=== PATIENT | female | born 1960 | race Caucasian/White ===

== ENCOUNTER 2018-11-05 09:42 | Emergency (ER) | payer BC ==
[2018-11-05 09:53] VITALS: BP 110/72
--- NOTE | 2018-11-05 10:06 | UC ---
UC General HPI - HPI Summary HPI Summary: pt noted some pain in her L upper abdomen and L back Wednesday. Wednesday, she noted a rash on her abdomen which is increasing since this am. she self tx with Naproxen [employer] which helped. no hx injury. no N/V/D or dysuria. + hx chicken pox as child. pt feels like the pain her her back is her kidney. she notes a similar discomfort 5 years ago but no rash. - History of Current Complaint Chief Complaint: UCAbdominalPain Stated Complaint: LT SIDE PAIN Time Seen by Provider: 11/05/18 09:57 Hx Obtained From: Patient Hx Last Menstrual Period: 01/2012 Onset/Duration: Gradual Onset Timing: Constant Pain Intensity: 5 - Allergy/Home Medications Allergies/Adverse Reactions: Allergies Allergy/AdvReac Type Severity Reaction Status Date / Time MS Penicillins [Penicillins] Allergy Intermediate Rash And Verified 11/05/18 09: 54 Itching MS Aromatic Oils Allergy Itch and Verified 11/05/18 09:54 [From Mentholatum Deep skin Heating Rub] breaks out MS Lanolin Allergy Itch and Verified 11/05/18 09:54 [From Mentholatum Deep skin Heating Rub] breaks out MS Menthol Allergy Itch and Verified 11/05/18 09:54 [From Mentholatum Deep skin Heating Rub] breaks out MS Methyl Salicylate Allergy Itch and Verified 11/05/18 09:54 [From Mentholatum Deep skin Heating Rub] breaks out PMH/Surg Hx/FS Hx/Imm Hx Previously Healthy: Yes - Surgical History Surgical History: Yes Surgery Procedure, Year, and Place: L ear - Family History Known Family History: Positive: Non-Contributory Negative: Diabetes - Social History Alcohol Use: Rare Substance Use Type: None Smoking Status (MU): Never Smoked Tobacco Review of Systems All Other Systems Reviewed And Are Negative: Yes Constitutional: Negative: Fever, Chills Skin: Positive: Rash - L side Respiratory: Negative: Shortness Of Breath, Cough Cardiovascular: Negative: Palpitations, Chest Pain Gastrointestinal: Negative: Vomiting, Diarrhea, Nausea Genitourinary: Negative: Dysuria, Hematuria, Frequency, Urgency Physical Exam Triage Information Reviewed: Yes Appearance: Well-Appearing Vital Signs: Initial Vital Signs Temp 97.2 F 11/05/18 09:50 Pulse 67 11/05/18 09:50 Resp 16 11/05/18 09:50 BP 110/72 11/05/18 09:50 Pulse Ox 100 11/05/18 09:50 Vital Signs Reviewed: Yes Eyes: Positive: Conjunctiva Clear ENT: Positive: Normal ENT inspection Neck: Positive: Supple Respiratory: Positive: Lungs clear, Normal breath sounds, No respiratory distress Cardiovascular: Positive: RRR, No Murmur Abdomen Description: Positive: Nontender, No Organomegaly, Soft, CVA Tenderness (L) - +/-. Negative: CVA Tenderness (R), Distended, Guarding, Hepatomegaly, Pulsatile Mass Bowel Sounds: Positive: Present Neurological: Positive: Alert Psychological: Positive: Age Appropriate Behavior Skin Exam: Normal Skin: Positive: Rashes - Small cluster red spots L anterior abdomen, more faint cluster L side and L back Diagnostics - Laboratory Lab Results: u/a=trace leukocytes with culture pending. - Radiology No standard instances Radiology Interpretation Completed By: Radiologist - IMPRESSION: 1. NO EVIDENCE FOR ACUTE FINDING. 2. MODERATE TO LARGE AMOUNT RETAINED STOOL. Course/Dx - Differential Dx - Multi-Symptom Differential Diagnoses: Other - exam c/w shingle; however, pt feels may be kident plus had L CVA tenderness thus u/a done=trace leukocytes only and CT abd/ pelvis=NAD(see report). non toxic. no acute abdomen. rash(shingles) still evolving thus will tx. - Diagnoses Provider Diagnosis: Shingles rash Discharge ED - Sign-Out/Discharge Documenting (check all that apply): Patient Departure All imaging exams completed and their final reports reviewed: Yes - Discharge Plan Condition: Stable Disposition: HOME Prescriptions: Famciclovir(NF) [Famvir(NF)] 500 mg PO TID 7 Days #21 tab Patient Education Materials: Shingles (ED) Referrals: Tricia Hardin MD [Primary Care Provider] - 7 Days Additional Instructions: GO TO ER FOR ANY WORSENING IN ABDOMINAL PAIN, FEVER, VOMITING/DIARRHEA OR ANY WORSENING ASIDE FROM THE LOCAL RASH ON YOUR SIDE. - Billing Disposition and Condition Condition: STABLE Disposition: Home
== END 2018-11-05 10:47 | disposition home or self-care (01) ==
LOC: UCCORT 09:42
DX: B02.9 Zoster without complications (principal); R10.10 Upper abdominal pain, unspecified; K59.00 Constipation, unspecified; Z88.0 Allergy status to penicillin; Z88.8 Allergy status to other drugs, medicaments and biological substances
CPT/HCPCS: 74176; 81003; 87086; 99212; G0463